=== PATIENT | female | born 1975 | race Asian ===

== ENCOUNTER 2017-03-23 10:02 | Emergency (ER) | payer BC ==
[~2017-03-23] VITALS: Ht 167.6 cm; Wt 99.8 kg
[2017-03-23 11:15] LABS: PLATELET COUNT 273 K/uL (152-353)
[2017-03-23 11:33] LABS: POTASSIUM 3.4 mmol/L (3.6-5.2); SODIUM 136 mmol/L (136-145)
[2017-03-23 13:34] VITALS: BP 141/94; TEMP 97.2
== END 2017-03-23 13:43 | disposition home or self-care (01) ==
LOC: ED 10:02
PROVIDERS: Specialist
DX: R20.9 Unspecified disturbances of skin sensation (principal); I10 Essential (primary) hypertension; R35.1 Nocturia; Z72.820 Sleep deprivation
CPT/HCPCS: 36415; 80053; 81000; 83735; 84100; 85027; 99283

== ENCOUNTER 2017-08-20 18:15 | Emergency (ER) | payer BC ==
[~2017-08-20] VITALS: Ht 165.1 cm; Wt 97.5 kg
[2017-08-20 19:01] LABS: PLATELET COUNT 160 K/uL (152-353)
[2017-08-20 19:14] LABS: POTASSIUM 3.9 mmol/L (3.6-5.2); SODIUM 136 mmol/L (136-145)
[2017-08-20 21:43] VITALS: BP 115/67; TEMP 98.4
== END 2017-08-20 21:45 | disposition home or self-care (01) ==
LOC: ED 18:15
DX: R10.11 Right upper quadrant pain (principal)
CPT/HCPCS: 36415; 80053; 85027; 96374; 96375; 99283; J1885; J2405

== ENCOUNTER 2018-08-12 14:49 | Outpatient (CLI) | payer BC | END 2018-08-12 22:30 | disposition home or self-care (01) | LOC: MAMMO 14:49 | DX: Z12.31 Encounter for screening mammogram for malignant neoplasm of breast (principal) ==

== ENCOUNTER 2020-05-27 17:58 | Inpatient (IN) | payer OTHER ==
[~2020-05-27] VITALS: Ht 165.1 cm; Wt 104.4 kg
[2020-05-27] VITALS (11 sets, daily range): BP systolic 106–147; BP diastolic 61–86; TEMP 100.7–103.2
[2020-05-27 19:24] LABS: PLATELET COUNT 221 K/uL (152-353)
[2020-05-27 19:27] LABS: POTASSIUM 3.7 mmol/L (3.6-5.2)
[2020-05-28] VITALS (10 sets, daily range): BP systolic 97–130; BP diastolic 59–87; TEMP 98.5–102.7; Ht 165.1 cm; Wt 104.4 kg
[2020-05-28] MEDS ORDERED: AZIT250T3 PO (02:03)
[2020-05-28] MEDS ORDERED: ASPIR-8181 MG PO (02:07)
[2020-05-28] MEDS ORDERED: ZINC PO (02:08)
[2020-05-28] MEDS ORDERED: VITAMIN C1 CH1 PO (02:08)
[2020-05-28] MEDS ORDERED: MEDROL DOSEPAK4 MG (02:09)
[2020-05-28 05:17] LABS: PLATELET COUNT 213 K/uL (152-353)
[2020-05-28 05:39] LABS: POTASSIUM 3.7 mmol/L (3.6-5.2)
[2020-05-29 04:00] VITALS: BP 128/73; TEMP 98.8
[2020-05-29 08:00] VITALS: BP 143/84; TEMP 98.5
[2020-05-29 12:00] VITALS: BP 124/72; TEMP 99.5
[2020-05-29 15:27] LABS: POTASSIUM 3.8 mmol/L (3.6-5.2)
[2020-05-29 16:00] VITALS: BP 130/79; TEMP 98.7
[2020-05-29 20:16] VITALS: BP 139/77; TEMP 99.2
[2020-05-30] VITALS: BP 158/89; TEMP 98.9
[2020-05-30 04:12] VITALS: BP 147/88; TEMP 98.6
[2020-05-30 08:00] VITALS: BP 147/78; TEMP 98.7
[2020-05-30 12:00] VITALS: BP 143/92; TEMP 98.4
[2020-05-30 16:00] VITALS: BP 142/85; TEMP 98.3
[2020-05-30 20:00] VITALS: BP 176/105; TEMP 98.6
[2020-05-31] VITALS: BP 134/89; TEMP 98.2
[2020-05-31 03:59] VITALS: BP 143/81; TEMP 98.6
[2020-05-31 05:41] LABS: PLATELET COUNT 333 K/uL (152-353)
[2020-05-31 05:54] LABS: POTASSIUM 3.9 mmol/L (3.6-5.2)
[2020-05-31 08:00] VITALS: BP 128/82; TEMP 98.9
[2020-05-31 12:00] VITALS: BP 143/86; TEMP 98.1
[2020-05-31 16:04] VITALS: BP 148/84; TEMP 98.1
[2020-05-31 20:00] VITALS: BP 144/84; TEMP 98.6
[2020-06-01] VITALS (7 sets, daily range): BP systolic 130–150; BP diastolic 79–93; TEMP 97.6–98.4
[2020-06-01 06:09] LABS: PLATELET COUNT 374 K/uL (152-353)
[2020-06-02 04:00] VITALS: BP 125/85; TEMP 98.7
[2020-06-02 05:18] LABS: PLATELET COUNT 360 K/uL (152-353)
[2020-06-02 05:36] LABS: POTASSIUM 4.6 mmol/L (3.6-5.2)
[2020-06-02 08:00] VITALS: BP 159/103; TEMP 98.1
[2020-06-02 12:00] VITALS: BP 126/85; TEMP 98.1
[2020-06-02 16:00] VITALS: BP 125/83; TEMP 98.3
[2020-06-02 20:29] VITALS: BP 127/66; TEMP 98.3
[2020-06-03] VITALS: BP 127/75; TEMP 98.5
[2020-06-03 04:00] VITALS: BP 157/86; TEMP 97.9
[2020-06-03 05:37] LABS: POTASSIUM 4.5 mmol/L (3.6-5.2)
[2020-06-03 06:38] LABS: PLATELET COUNT 420 K/uL (152-353)
[2020-06-03 08:00] VITALS: BP 106/71; TEMP 98.2
[2020-06-03 11:52] VITALS: BP 114/67; TEMP 98
[2020-06-03 16:00] VITALS: BP 97/59; TEMP 98.7
[2020-06-03 20:00] VITALS: BP 100/62; TEMP 98.5
[2020-06-04] VITALS (7 sets, daily range): BP systolic 92–119; BP diastolic 53–70; TEMP 97.9–98.8
[2020-06-04 05:27] LABS: PLATELET COUNT 413 K/uL (152-353)
[2020-06-04 05:36] LABS: POTASSIUM 4.1 mmol/L (3.6-5.2)
[2020-06-05 04:00] VITALS: BP 98/60; TEMP 97.8
[2020-06-05 05:43] LABS: PLATELET COUNT 394 K/uL (152-353)
[2020-06-05 05:54] LABS: POTASSIUM 4.2 mmol/L (3.6-5.2)
[2020-06-05 08:00] VITALS: BP 109/64; TEMP 98.3
[2020-06-05 11:59] VITALS: BP 96/58; TEMP 98.5
== END 2020-06-05 16:00 | disposition home or self-care (01) | DRG 177 ==
LOC: ED 17:58 → MED/SURG 23:45
PROVIDERS: Family Medicine; Internal Medicine Endocrinology, Diabetes & Metabolism; ADMIT Internal Medicine
DX: U07.1 COVID-19 (principal); J18.8 Other pneumonia, unspecified organism; E87.1 Hypo-osmolality and hyponatremia; E66.01 Morbid (severe) obesity due to excess calories; Z68.38 Body mass index [BMI] 38.0-38.9, adult; Z71.3 Dietary counseling and surveillance; A08.8 Other specified intestinal infections; R19.7 Diarrhea, unspecified
CPT/HCPCS: 36415; 80053; 81000; 83605; 85007; 85027; 85379; 94760; 96360; 96365; 96366; 96375; 99284; J0456; J1650; J1940; J2920; J2930

== ENCOUNTER 2020-06-13 11:03 | Outpatient (CLI) | payer OTHER ==
[~2020-06-13 11:03] MED LIST: ASPIR-8181 MG PO; AZIT250T3 PO; MEDROL DOSEPAK4 MG; VITAMIN C1 CH1 PO; ZINC PO
== END 2020-06-13 19:10 | disposition home or self-care (01) ==
LOC: RAD 11:03
DX: R06.02 Shortness of breath (principal)

== ENCOUNTER 2020-06-27 11:22 | Outpatient (CLI) | payer OTHER | END 2020-06-27 23:42 | disposition home or self-care (01) | LOC: RAD 11:22 | DX: R06.02 Shortness of breath (principal) ==

== ENCOUNTER 2022-02-12 14:25 | Emergency (ER) | payer OTHER ==
[~2022-02-12] VITALS: Ht 165.1 cm; Wt 108.0 kg
[2022-02-12 15:26] LABS: PLATELET COUNT 285 K/uL (152-353)
[2022-02-12 15:35] LABS: POTASSIUM 3.5 mmol/L (3.6-5.2)
[2022-02-12 18:25] VITALS: BP 140/82; TEMP 98.7
== END 2022-02-12 18:25 | disposition short-term general hospital (02) ==
LOC: ED 14:25
PROVIDERS: Emergency Medicine Emergency Medical Services
DX: I63.9 Cerebral infarction, unspecified (principal); I69.354 Hemiplegia and hemiparesis following cerebral infarction affecting left non-dominant side; I10 Essential (primary) hypertension
CPT/HCPCS: 80053; 84484; 85027; 85610; 93005; 96360; 99284